=== PATIENT | female | born 1955 | race Two or more races ===

== ENCOUNTER 2018-03-08 12:33 | Inpatient (IN) | payer OTHER ==
[~2018-03-08] VITALS: Ht 162.6 cm; Wt 61.2 kg
[~2018-03-08 12:33] MED LIST: CIPRO500 MG PO; COZAAR100 MG PO; FLAGYL500MG PO; INTESTINEX680 MG PO; SYNTHROID88 MCG PO; ZANTAC150 MG PO
== END 2018-03-13 14:33 | disposition home or self-care (01) | DRG 392 ==
LOC: ER 12:33 → MEDJ 03-09 11:38 → SEC-K 03-09 11:38 → MEDJ 03-09 17:21
PROVIDERS: ADMIT Internal Medicine
PROC: 8E0ZXY6 Isolation (ICD-10-PCS; principal; 2018-03-09)
PROC: 3E0F7GC Introduction of Other Therapeutic Substance into Respiratory Tract, Via Natural or Artificial Opening (ICD-10-PCS; 2018-03-09)
DX: A08.8 Other specified intestinal infections (principal); J45.909 Unspecified asthma, uncomplicated

== ENCOUNTER 2018-09-10 13:36 | Emergency (ER) | payer OTHER ==
[~2018-09-10] VITALS: Ht 160 cm; Wt 65.8 kg
== END 2018-09-10 17:38 ==
LOC: ER 13:36
DX: S61.221A Laceration with foreign body of left index finger without damage to nail, initial encounter (principal); W45.8XXA Other foreign body or object entering through skin, initial encounter; Y93.89 Activity, other specified; Y92.89 Other specified places as the place of occurrence of the external cause; Y99.8 Other external cause status

== ENCOUNTER 2021-06-13 20:11 | Emergency (ER) | payer OTHER ==
[~2021-06-13] VITALS: Ht 160 cm; Wt 68.0 kg
[2021-06-13] MEDS ORDERED: MORGIDOX50 MG (20:32)
[2021-06-13] MEDS ORDERED: PROTONIX20 MG (20:32)
[2021-06-14] MEDS ORDERED: PEPCID AC20 MG PO (03:44)
[2021-06-14] MEDS ORDERED: ACETAMINOPHEN650 M2 PO (03:44)
[2021-06-14] MEDS ORDERED: CIPRO500 MG PO (03:44)
[2021-06-14] MEDS ORDERED: METRONIDAZOLE500 MG PO (03:44)
[2021-06-14] MEDS ORDERED: INTESTINEX680 M1 PO (03:44)
[2021-06-14] MEDS ORDERED: LEVSIN0.125 MG PO (03:44)
[2021-06-14] MEDS ORDERED: CARDURA1 MG PO (07:44)
== END 2021-06-14 06:56 | disposition home or self-care (01) ==
LOC: ER 20:11
DX: K57.92 Diverticulitis of intestine, part unspecified, without perforation or abscess without bleeding (principal); K44.9 Diaphragmatic hernia without obstruction or gangrene; I10 Essential (primary) hypertension; Z88.8 Allergy status to other drugs, medicaments and biological substances

== ENCOUNTER 2023-09-05 12:38 | Inpatient (IN) | payer OTHER ==
[~2023-09-05] VITALS: Ht 162.6 cm; Wt 147.9 kg
[~2023-09-05 12:38] MED LIST changes: +ACETAMINOPHEN650 M2 PO; +CARDURA1 MG PO; +INTESTINEX680 M1 PO; +LEVSIN0.125 MG PO; +METRONIDAZOLE500 MG PO; +MORGIDOX50 MG; +PEPCID AC20 MG PO; +PROTONIX20 MG
--- NOTE | 2023-09-05 13:40 | NUR ---
PTE ALERTA Y ORIENTADA X3 REFIERE TOS Y DOLOR DE SANCHEZ DESDE HACE 3 SEMANAS. SE MIDEN S/V Y SE UBICA.
[2023-09-05] MEDS ORDERED: BENZONATATE 100 MG CAPSULE PO ONE (15:00)
[2023-09-05] MEDS ORDERED: ACETAMINOPHEN 325 MG TABLET PO ONE (15:00)
[2023-09-05] MEDS ORDERED: LEVALBUTEROL HCL 0.63 MG/3 ML SOLUTION IH ONE (15:00)
[2023-09-05] MEDS ORDERED: IPRATROPIUM BROMIDE 0.5 MG/2.5 ML AMPUL.NEB IH ONE (15:00)
[2023-09-05 16:16] LABS: HEMATOCRIT 36.9 % (36.0-45.00); HEMOGLOBIN 12.4 g/dL (12.0-15.00); MEAN CELL VOLUME 92.2 fL (80.00-100.00); MEAN CORPUSCULAR HGB CONC 33.7 g/dl (32.0-36.0); PLATELET COUNT 192 K/uL (150-450); RED CELL DISTRIBUTION WIDTH 13.3 % (11.5-14.5)
[2023-09-05] MEDS ORDERED: IPRATROPIUM BROMIDE 0.5 MG/2.5 ML AMPUL.NEB IH SCH (17:00)
[2023-09-05] MEDS ORDERED: SODIUM CHLORIDE 0.45 % 1,000 ML IV SCH (17:00)
[2023-09-05] MEDS ORDERED: CEFTRIAXONE SODIUM 1,000 MG VIAL IV SCH (17:09)
[2023-09-05] MEDS ORDERED: AZITHROMYCIN 500 MG in DEXTROSE 5 % IN WATER 250 ML IV SCH (17:10)
[2023-09-05] MEDS ORDERED: HYDROCODONE/CHLORPHEN P-STIREX 5 ML ML PO SCH (17:13)
[2023-09-05] MEDS ORDERED: GUAIFENESIN 200 MG/10 ML BLIST.PACK PO SCH (18:00)
[2023-09-05] MEDS ORDERED: ALBUTEROL SULFATE 3 ML/2.5 MG AMPUL.NEB IH SCH (18:00)
[2023-09-06] MEDS ORDERED: LEVOTHYROXINE SODIUM 88 MCG TABLET PO SCH ×2 (06:00→09:00)
[2023-09-06] MEDS ORDERED: DOXAZOSIN MESYLATE 2 MG TABLET PO SCH (09:00)
[2023-09-06] MEDS ORDERED: LOSARTAN POTASSIUM 100 MG TABLET PO SCH (09:00)
[2023-09-06 15:57] LABS: BILIRUBIN TOTAL 0.33 mg/dL (0.3-1.2); CALCIUM 8.5 mg/dL (8.5-10.1); CREATININE SERUM 0.67 mg/dL (0.55-1.02); FERRITIN 102.4 NG/ML (8-252); GFR 87.79; GLOBULINA 2.9 G/DL (2.4-3.5); POTASSIUM 3.95 mEq/L (3.5-5.1); TOTAL PROTEIN 5.9 gm/dL (6.4-8.2)
[2023-09-06 15:59] LABS: C-REACTIVE PROTEIN 1.31 MG/DL (0.00-0.29); MYCOPLASMA PNEUMONIAE IGM NON REACTIVE (NO REACTIVE)
[2023-09-06] MEDS ORDERED: CEFTRIAXONE SODIUM 2,000 MG VIAL IV SCH (17:00)
[2023-09-07 08:37] LABS: HEMATOCRIT 37.2 % (36.0-45.00); HEMOGLOBIN 12.3 g/dL (12.0-15.00); MEAN CELL VOLUME 92.1 fL (80.00-100.00); MEAN CORPUSCULAR HEMOGLOBIN 30.5 pg (27.00-32.0); MEAN CORPUSCULAR HGB CONC 33.1 g/dl (32.0-36.0); PLATELET COUNT 196 K/uL (150-450); RED BLOOD COUNT 4.04 M/uL (4.00-6.00); RED CELL DISTRIBUTION WIDTH 13.1 % (11.5-14.5)
[2023-09-07] MEDS ORDERED: DEXAMETHASONE SODIUM PHOSPHATE 4 MG/ML VIAL IV SCH (09:00)
[2023-09-07 09:24] LABS: ALBUMIN 3.1 gm/dL (3.4-5.0); BILIRUBIN TOTAL 0.41 mg/dL (0.3-1.2); CALCIUM 8.6 mg/dL (8.5-10.1); CREATININE SERUM 0.63 mg/dL (0.55-1.02); GFR 94.25; GLOBULINA 2.9 G/DL (2.4-3.5); POTASSIUM 4.17 mEq/L (3.5-5.1)
[2023-09-08 07:59] LABS: BILIRUBIN TOTAL 0.29 mg/dL (0.3-1.2); CALCIUM 8.7 mg/dL (8.5-10.1); CREATININE SERUM 0.56 mg/dL (0.55-1.02); FERRITIN 80.6 NG/ML (8-252); GFR 107.98; GLOBULINA 2.9 G/DL (2.4-3.5); POTASSIUM 4.79 mEq/L (3.5-5.1); TOTAL PROTEIN 5.9 gm/dL (6.4-8.2)
[2023-09-08 08:22] LABS: HEMATOCRIT 36.3 % (36.0-45.00); HEMOGLOBIN 12.1 g/dL (12.0-15.00); MEAN CELL VOLUME 92.7 fL (80.00-100.00); MEAN CORPUSCULAR HEMOGLOBIN 30.9 pg (27.00-32.0); MEAN CORPUSCULAR HGB CONC 33.4 g/dl (32.0-36.0); PLATELET COUNT 218 K/uL (150-450); RED BLOOD COUNT 3.92 M/uL (4.00-6.00); RED CELL DISTRIBUTION WIDTH 12.5 % (11.5-14.5)
[2023-09-08 08:33] LABS: C-REACTIVE PROTEIN 0.7 MG/DL (0.00-0.29)
== END 2023-09-08 19:32 | disposition home or self-care (01) | DRG 202 ==
LOC: ER 12:39 → SEC-K 17:39 → ER 17:39 → MEDJ 17:45 → SEC-K 17:45 → MEDJ 20:57
PROVIDERS: General Practice; Internal Medicine Infectious Disease; ADMIT Internal Medicine; ATTEND Internal Medicine
PROC: BW24ZZZ Computerized Tomography (CT Scan) of Chest and Abdomen (ICD-10-PCS; principal; 2023-09-06)
DX: J20.9 Acute bronchitis, unspecified (principal); U07.1 COVID-19; I10 Essential (primary) hypertension